=== PATIENT | female | born 1985 | race Caucasian/White ===

== ENCOUNTER 2017-03-06 06:45 | Emergency (ER) | payer BC ==
[~2017-03-06] VITALS: Ht 162.6 cm; Wt 68.8 kg
[2017-03-06] MEDS ORDERED: BIRTH CONTROL PILL PO (07:02)
[2017-03-06 07:39] LABS: HEMATOCRIT 39.2 % (36.0-46.0); HEMOGLOBIN 13.6 G/DL (11.9-15.5); MCH 33.3 PG (29.0-34.0); MCHC 34.7 G/DL (30.0-36.0); MCV 95.8 FL (83-99); PLATELET COUNT 212 K/uL (156-360); RBC DIS.WIDTH-CV 11.5 % (11.8-14.6); RBC DIS.WIDTH-SD 40.1 % (39-53); RED BLOOD COUNT 4.09 M/uL (3.80-5.20); WHITE BLOOD COUNT 12.3 K/uL (4.1-10.2)
[2017-03-06 07:41] LABS: APPEARANCE CLOUDY ((CLEAR)); BILIRUBIN NEGATIVE; BLOOD LARGE; COLOR AMBER ((YELLOW)); GLUCOSE (STRIP) NEGATIVE; KETONES 20; LEUKOCYTES NEGATIVE; NITRITE NEGATIVE; PROTEIN (STRIP) NEGATIVE; SPECIFIC GRAVITY 1.033 (1.000-1.030); UROBILINOGEN 0.2 MG/DL (0.2-1.0)
[2017-03-06 07:46] LABS: BACTERIA RARE /HPF; EPITHELIAL CELLS 4+ /HPF; MUCUS 4+ /LPF; RED BLOOD CELLS 20-30 /HPF (0-5); UCUL ADDED? YES
[2017-03-06 07:58] LABS: ALBUMIN 4.2 g/dL (3.2-4.8); CHLORIDE 108 mEq/L (99-109); POTASSIUM 5.1 mEq/L (3.7-5.4); SODIUM 137 mEq/L (136-147)
[2017-03-06 08:00] LABS: GLUCOSE 86 mg/dL (70-99); TOTAL PROTEIN 7.2 g/dL (6.4-8.3)
[2017-03-06 08:02] LABS: TOTAL BILIRUBIN 0.8 mg/dL (0.0-1.0)
[2017-03-06 08:04] LABS: ALKALINE PHOSPHATASE 44 IU/L (3-129); CREATININE 0.8 mg/dL (0.6-1.3); GFR ESTIMATE (CALCULATED) > 59 mL/min/
[2017-03-06 08:05] LABS: AST (GOT) 21 IU/L (2-34); UREA NITROGEN (BUN) 14 mg/dL (9-23)
[2017-03-06 08:07] LABS: ALT (GPT) 12 IU/L (3-49)
[2017-03-06] MEDS ORDERED: ZOFRAN ODT4 MG PO (09:12)
[2017-03-06] MEDS ORDERED: KEFLEX500 MG PO (09:12)
[2017-03-06] MEDS ORDERED: FLOMAX0.4 MG PO (09:12)
[2017-03-06 09:50] VITALS: BP 131/81
== END 2017-03-06 10:00 | disposition home or self-care (01) ==
LOC: EME 06:45
PROVIDERS: Nurse Practitioner Family
DX: N20.0 Calculus of kidney (principal); N39.0 Urinary tract infection, site not specified
CPT/HCPCS: 74176; 80053; 81003; 85027; 87086; 99281; 99285; J1885; J2405; J3010